=== PATIENT | female | born 1965 | race Caucasian/White ===

== ENCOUNTER 2021-06-11 16:46 | Outpatient (REF) | payer OTHER, SELFPAY | END 2021-06-11 16:47 | disposition home or self-care (01) | LOC: HO.LNP 16:46 | PROVIDERS: Visit Provider Physician Assistant Medical | DX: J06.9 Acute upper respiratory infection, unspecified (principal); Z20.822 Contact with and (suspected) exposure to COVID-19 | CPT/HCPCS: U0003; U0005 ==

== ENCOUNTER 2021-09-26 12:19 | Outpatient (REF) | payer OTHER, SELFPAY ==
[2021-09-26 13:01] LABS: Binax Internal Control QC Valid; Binax Now Covid-19 Ag Negative (Negative)
== END 2021-09-26 12:20 | disposition home or self-care (01) ==
LOC: HO.HMGCLDS 12:19
PROVIDERS: PCP Internal Medicine; Visit Provider Internal Medicine
DX: Z13.89 Encounter for screening for other disorder (principal)

== ENCOUNTER 2025-02-23 14:36 | Outpatient (AMB) | payer OTHER, SELFPAY ==
--- NOTE | 2025-02-23 14:53 | MHC.OFFWIV ---
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 - The patient reports the onset of a sore throat 6 days ago, which progressed to a sharp sore throat with mucus production and yellow nasal discharge. - She has been managing symptoms with hydration, hot tea, and cough drops, but reports her tongue is irritated from the cough drops. - No fever, shortness of breath, or loss of taste or smell has been reported. No headaches or fatigue, sinus or ear pain. - The patient has a history of a urinary tract infection diagnosed on December 28, treated initially with nitrofurantoin for 14 days. - Symptoms recurred, leading to additional treatment with nitrofurantoin for another 10 days, followed by a 2-day course to cover the 14 of January weekend. - The patient reports minimal urinary symptoms currently, with no blood in urine or urgency, but a slight sensation post-urination. - Patient has her paper records, previous urine cultures indicated E. coli. Physical Exam General: Cooperative, healthy appearing, comfortable and no acute distress Orientation/consciousness: Patient oriented x3 Limitations: No limitations Head: Normal to inspection Ears: Hearing grossly normal bilaterally, external ears normal and TM's normal bilaterally Nose: Normal external nose present, Normal nares present and No nasal discharge present Face and sinus: Normal facial exam and Yes sinuses nontender Mouth: Normal oral and palatal mucosa present and moist mucous membranes Throat: Yes tonsils normal, Yes uvula midline. Posterior oropharynx erythema, no exudates Eyes: Appearance normal, both eyes and all related structures Neck: Normal visual inspection, full ROM Respiratory: Normal respiratory effort, able to speak in complete sentences, Actively coughing, no respiratory distress, not tachypneic, no tripod positioning and no use of accessory muscles Skin: No rashes or lesions noted Neuro: Patient oriented x3 Extremities: Normal to inspection and Yes no clubbing, cyanosis or edema PFSH Social History Patient Tobacco Use Status: Never used Tobacco Review of Systems Const All systems reviewed & are unremarkable except as noted in HPI and below Physical Exam Vital Signs: Last Vital Signs Temp 98.8 F 02/23/25 14:54 Pulse 97 02/23/25 14:54 BP 138/82 02/23/25 14:54 Pulse Ox 97 02/23/25 14:54 Oxygen Delivery Method Room Air 02/23/25 14:54 BMI result Body Mass Index 21.3 Results AMB Rapid Strep AMB Rapid Strep Negative Last Edit by Priti Snyder MA on 02/23/25 15:17 AMB Urinalysis, Automated UA Leukoctes 70 Leticia/uL Last Edit by Priti Snyder MA on 02/23/25 15:34 UA Nitrite Negative Last Edit by Priti Snyder MA on 02/23/25 15:34 UA Urobilinogen 0.2 mg/dL Last Edit by Priti Snyder MA on 02/23/25 15:34 UA Protein 0 mg/dL Last Edit by Priti Snyder MA on 02/23/25 15:34 UA pH 6.0 Last Edit by Priti Snyder MA on 02/23/25 15:34 UA Blood 25 Jorge/uL Last Edit by Priti Snyder MA on 02/23/25 15:34 UA Specific [place] 1.005 Last Edit by Priti Snyder MA on 02/23/25 15:34 UA Ketone Negative Last Edit by Priti Snyder MA on 02/23/25 15:34 UA Bilirubin 0 mg/dL Last Edit by Priti Snyder MA on 02/23/25 15:34 UA Glucose 0 mg/dL Last Edit by Priti Snyder MA on 02/23/25 15:34 Results Reviewed Results Reviewed: Laboratory Last Values Urine pH (Auto) 6.0 02/23/25 15:33 Specific [place] (Auto) 1.005 02/23/25 15:33 Urine Protein (Auto) 0 mg/dL 02/23/25 15:33 Glucose (UA)(Auto) 0 mg/dL 02/23/25 15:33 Urine Ketones (Auto) Negative 02/23/25 15:33 Urine Blood (Auto) 25 Jorge/uL 02/23/25 15:33 Urine Nitrite (Auto) Negative 02/23/25 15:33 Urine Bilirubin (Auto) 0 mg/dL 02/23/25 15:33 Urine Urobilinogen (Auto) 0.2 mg/dL 02/23/25 15:33 Leukocyte Esterase (Auto) 70 Leticia/uL 02/23/25 15:33 Strep Scn Rapid Clinic Negative 02/23/25 15:16 Assessment & Plan Assessment & Plan (1) URI (upper respiratory infection): Code(s): J06.9 - Acute upper respiratory infection, unspecified Qualifiers: URI type: unspecified viral URI Qualified Code(s): J06.9 - Acute upper respiratory infection, unspecified Plan: Plan - Rapid strep negative - VSS, pt well appearing and PE unremarkable. - A viral panel was conducted to identify the specific virus causing the upper respiratory symptoms. - Prescribed tessalon pearls for cough suppression, to be taken every eight hours as needed, particularly at bedtime. Patient was informed and verbally consented to the use of an ambient scribe for clinic note documentation during this visit (2) Dysuria: Code(s): R30.0 - Dysuria Plan: - UA + leuks, neg nitrites and 1+ blood, will treat for UTI. - Advised against the use of nitrofurantoin for future urinary tract infections due to poor efficacy against E. coli. - Recommended a cephalosporin for future treatment of urinary tract infections caused by E. coli. Orders: Orders AMB Rapid Strep Screen Today Z13.9 - Encounter for screening, unspecified AMB Urinalysis Automated Today Z13.9 - Encounter for screening, unspecified Resp Pathogen Panel - [facility] [place] Today J06.9 - Acute upper respiratory infection, unspecified Medications: New cefuroxime axetil 500 mg PO Q12H 10 tabs 0RF benzonatate 200 mg PO BEDTIME PRN 14 caps 0RF cough Refilled fluticasone propionate 50 mcg/actuation (Flonase Allergy Relief) administer into each nostril 1 spray intranasal DAILY 9.9 mL 1RF Coding Level of Care Code Est Pt Level 4 (71155) Diagnoses Viral upper respiratory tract infection J06.9 URI type: unspecified viral URI Dysuria R30.0
[2025-02-23 14:54] VITALS: BP 138/82; PULSE 97; TEMP 37.1; O2SAT 97; BMI 21.3
== END 2025-02-23 15:52 | disposition home or self-care (01) ==
PROVIDERS: PCP Internal Medicine; Visit Provider Physician Assistant
DX: J06.9 Acute upper respiratory infection, unspecified (principal); R30.0 Dysuria; Z13.9 Encounter for screening, unspecified

== ENCOUNTER 2025-02-23 14:36 | Outpatient (REF) | payer OTHER, SELFPAY ==
[2025-02-24 11:29] LABS: Chlamydia pneumoniae PCR Not Detected (Not Detect.); Coronavirus 229E PCR Not Detected (Not Detect.); Coronavirus HKU1 PCR Not Detected (Not Detect.); Coronavirus NL63 PCR Not Detected (Not Detect.); Coronavirus OC43 PCR Not Detected (Not Detect.); RSV PCR Not Detected (Not Detect.); Rhino/Enterovirus PCR Not Detected (Not Detect.)
[2025-02-24 11:42] LABS: SARS-CoV-2 PCR Not Detected (Not Detect.)
[2025-02-24 11:43] LABS: Influenza A H1 PCR Not Detected (Not Detect.); Influenza A H1-2009 PCR Not Detected (Not Detect.); Influenza A H3 PCR Not Detected (Not Detect.)
== END 2025-02-23 14:37 | disposition home or self-care (01) ==
LOC: HO.LAB 14:36
PROVIDERS: PCP Internal Medicine; Visit Provider Physician Assistant
DX: J06.9 Acute upper respiratory infection, unspecified (principal); R09.81 Nasal congestion; R30.0 Dysuria; Z13.89 Encounter for screening for other disorder
CPT/HCPCS: 81003; 87086; 87088; 87186; 87633; 87880; 99212

== ENCOUNTER 2025-04-18 13:52 | Outpatient (AMB) | payer OTHER, SELFPAY ==
[2025-04-18 13:55] VITALS: BP 120/80; PULSE 83; RESP 18; TEMP 36.9; O2SAT 97; BMI 21.5
--- NOTE | 2025-04-18 13:55 | MHC.PC.OV ---
Vital Signs 04/18/25 13:55 Height 5 ft 7 in Weight 137 lb BMI 21.5 BP 120/80 Blood Pressure Location Lt brachial Position Sitting Respiration 18 Pulse 83 Pulse Source Pulse Oximeter Temp 98.4 F Temp Source Oral Pulse Oximetry (%) 97 Oxygen Delivery Method Room Air Intake Visit Reasons: Annual PE Intake Note: Pt is here today for PE. Pt states that she has not been seen in couple of years. Allergies Sulfa (Sulfonamide Antibiotics) Allergy (Severe, Verified 04/18/25 14:03) rash Medication List - Last Reconciled 04/18/25 by Beatriz Antoine MD acetaminophen (Tylenol Extra Strength) 500 mg PO Q6H PRN cholecalciferol (vitamin D3) 25 mcg PO DAILY fluticasone propionate 50 mcg/actuation (Flonase Allergy Relief) 1 spray intranasal DAILY Tobacco use date assessed: 04/18/25 Dental Screening Dental Screen Date: 04/18/25 Did you have a dental visit in the last 12 months?: Yes Did you have a dental problem in the last 6 months where you did not have access to dental care?: No Was dental information given to patient?: Patient has dentist HPI Annual PE HPI Details Pt presents for PE. [facility] Medical History (Updated 04/18/25 @ 15:04 by Beatriz Antoine MD) Annual physical exam Hx of screening mammography Normal pelvic exam Surgical History (Updated 04/18/25 @ 15:04 by Beatriz Antoine MD) Hx of colonoscopy No pertinent past surgical history Family History (Updated 04/18/25 @ 14:06 by Laura Connelly [facility]) Father No problems noted. Mother No problems noted. 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 1. Little interest or pleasure in doing things: not at all 2. Feeling down, depressed, or hopeless: not at all 3. Trouble falling or staying asleep, or sleeping too much: not at all 4. Feeling tired or having little energy: not at all 5. Poor appetite or overeating: not at all 6. Feeling bad about yourself - or that you are a failure or have let yourself or your family down: not at all 7. Trouble concentrating on things, such as reading the newspaper or watching television: not at all 8. Moving or speaking so slowly that other people could have noticed. Or the opposite - being so fidgety or restless that you have been moving around a lot more than usual: not at all 9. Thoughts that you would be better off or of hurting yourself in some way: not at all Total score: 0 Depression Screening Interpretation: Negative Depression Screening Done: Yes 08469 - PHQ-9 Billing: Yes Source: Developed by Drs. Son Adams, Alicia Quintana, Octaviano Ortiz and colleagues, with an educational kartik from [email or web address]. Thrive Questionnaire Date Thrive assessed: 04/18/25 I am a: Patient What is your living situation today?: I have a steady place to live Within the past 12 months, did the food you bought not last and you didn't have the money to get more?: Never true Within the past 12 months, did you worry whether your food would run out before you got money to buy more?: Never true Do you have trouble paying for medicines?: No Do you have trouble getting transportation to medical appointments?: No Do you have trouble paying your heating and electricity bill?: No Do you have trouble taking care of your child, family member or friend?: No Do you have trouble with day-to-day activities such as bathing, preparing meals, shopping, managing finances, etc.?: No Are you currently unemployed and looking for a job?: No Are you interested in more education?: No Please select the resources that you would like help with: None Currently or been in a relationship where the following occur: No concerns reported THRIVE Score: 0 AUDIT C Alcohol Use Questionnaire (AUDIT-C) 1. How often do you have a drink containing alcohol?: 2-3 times a week 2. How many drinks containing alcohol do you have on a typical day when you are drinking?: 1 or 2 3. How often do you have six or more drinks on one occasion?: Never Total Score: 3 PAULY-7 AMB Questionnaire PAULY-7 Date PAULY - 7 assessed: 04/18/25 Feeling nervous, anxious, or on edge: 1 = Several days Not being able to stop or control worryin = Not at all Worrying too much about different things: 1 = Several days Trouble relaxin = Several days Being so restless that it is hard to sit still: 0 = Not at all Becoming easily annoyed or irritable: 1 = Several days Feeling afraid as if something awful might happen: 0 = Not at all Total PAULY-7 score (0-4 normal; 5-9 mild; 10-14 moderate; 15-21 severe): 4 Source: Developed by Drs. Son Adams, Alicia Quintana, Octaviano Ortiz and colleagues, with an educational kartik from [email or web address]. PAULY-7 Assessment Billing PAULY-7 Assessment Tool: PAULY-7 Assessment 44028 Review of Systems Const All systems reviewed & are unremarkable except as noted in HPI and below Eyes Reports no additional complaints Physical exam (Primary Care) Vital Signs: Last Vital Signs Temp 98.4 F 04/18/25 13:55 Pulse 83 04/18/25 13:55 Resp 18 04/18/25 13:55 BP 120/80 04/18/25 13:55 Pulse Ox 97 04/18/25 13:55 Oxygen Delivery Method Room Air 04/18/25 13:55 BMI result Body Mass Index 21.5 Tobacco/Smoking Status: Tobacco use Status Tobacco use date assessed 04/18/25 04/18/25 14:06 Patient Tobacco Use Status Never used Tobacco 04/18/25 14:06 e-Cigarette/Vaping Use Never Used 04/18/25 14:06 PHQ-9: PHQ-9 Score PHQ-9: Total score 0 04/18/25 14:06 Depression Screening Interpretation: Negative Thrive Assessment: Date of Thrive Assessment Date Thrive assessed 04/18/25 04/18/25 13:57 Currently or been in a relationship where the following occur: No concerns reported Const General: no acute distress HENMT Head: Yes normal to inspection Face and sinus: Yes normal facial exam Mouth: Normal oral and palatal mucosa present Throat: Yes posterior oropharynx normal Eyes General: appearance normal, both eyes and all related structures Neck Neck: Yes no lymphadenopathy and Yes supple Resp Effort & Inspection: normal respiratory effort Auscultation: clear to auscultation bilaterally Cardio Rhythm: regular rhythm Heart sounds: S1 normal heart sound present and S2 normal heart sound present GI Inspection: Yes normal to inspection Palpation (GI): Soft to palpation Percussion: Yes normal to percussion Auscultation: normal bowel sounds Coding Level of Care Code Est Pt Prev Care 40-64y(59972) Diagnoses Annual physical exam Z00. UTI (urinary tract infection) N39.0 Additional Codes PAULY-7 Assessment Billing - PAULY-7 Assessment Tool: PAULY-7 Assessment 26017 ([id number]) PHQ-9 - 27241 - PHQ-9 Billing: Yes ([id number]) Assessment & Plan Assessment & Plan (1) Annual physical exam: Code(s): Z. - Encounter for general adult medical examination without abnormal findings Category: Medical Plan: Well-balanced diet regular physical activity discussed with the patient she will return for fasting blood work. She is up-to-date with a vision mixer for pelvic exam Pap smear and mammogram. Cologuard will be checked for colon cancer screening (2) UTI (urinary tract infection): Code(s): N39.0 - Urinary tract infection, site not specified Category: Medical Plan: For recurrent UTIs check urine culture after treatment Orders: Orders Comprehensive [place]. Panel Fast Today Z00.00 - Encounter for general adult medical examination without abnormal findings Complete Blood Count Auto Diff Today Z00.00 - Encounter for general adult medical examination without abnormal findings Lipid Panel Today Z00.00 - Encounter for general adult medical examination without abnormal findings Vitamin D 25-OH Total Today Z00.00 - Encounter for general adult medical examination without abnormal findings TSH reflex Free T4 Today Z00.00 - Encounter for general adult medical examination without abnormal findings UA w Microscopic Today Z00.00 - Encounter for general adult medical examination without abnormal findings Urine Culture Today N39.0 - Urinary tract infection, site not specified Referrals Cologuard Test Z00.00 - Encounter for general adult medical examination without abnormal findings, Z12.11 - Encounter for screening for malignant neoplasm of colon, Z12.12 - Encounter for screening for malignant neoplasm of rectum Medications: New cholecalciferol (vitamin D3) 25 mcg PO DAILY 90 tabs 1RF
== END 2025-04-18 14:38 | disposition home or self-care (01) ==
LOC: HO.HMCC 13:53
PROVIDERS: PCP Internal Medicine; Visit Provider Internal Medicine
DX: Z00.00 Encounter for general adult medical examination without abnormal findings (principal); N39.0 Urinary tract infection, site not specified

== ENCOUNTER → 2025-04-18 13:52 | Outpatient (BNVA) | payer OTHER, SELFPAY | PROVIDERS: PCP Internal Medicine; Visit Provider Internal Medicine | DX: Z00.00 Encounter for general adult medical examination without abnormal findings (principal); N39.0 Urinary tract infection, site not specified | CPT/HCPCS: 96127; 99396 ==